=== PATIENT | male | born 1965 ===

== ENCOUNTER → 2017-10-12 | Emergency (ER) | payer OTHER ==
[~2017-10-12] VITALS: Ht 182.9 cm; Wt 83.0 kg
[~2017-10-12] MED LIST: FLONASE ALLERG9.9 ML; ZYRTEC10 M3
== END | disposition home or self-care (01) ==
LOC: ER 14:52
DX: S90.02XA Contusion of left ankle, initial encounter (principal); W34.00XA Accidental discharge from unspecified firearms or gun, initial encounter; Y93.64 Activity, baseball; Y92.89 Other specified places as the place of occurrence of the external cause; Y99.8 Other external cause status